=== PATIENT | male | born 1970 | race Caucasian/White ===

== ENCOUNTER 2016-11-25 00:53 | Observation (INO) | payer MEDICAID ==
[~2016-11-25] VITALS: Ht 177.8 cm; Wt 107.1 kg
[2016-11-25] MEDS ORDERED: NITROGLYCERIN SL 0.4 MG TAB SL ONE ×2 (02:25→02:43)
[2016-11-25] MEDS ORDERED: NITROGLYCERIN SL 0.4 MG TAB SL PRN (03:15)
[2016-11-25] MEDS ORDERED: NITROGLYCERIN 50 MG/250 ML IV PRN (03:15)
[2016-11-25] MEDS ORDERED: LORAZEPAM 0.5 MG TAB PO PRN (03:15)
[2016-11-25] MEDS ORDERED: TRAMADOL 50 MG TAB PO PRN (03:15)
[2016-11-25] MEDS ORDERED: SODIUM CHLORIDE 0.9% FLUSH BAG 500 ML IV PRN (03:15)
[2016-11-25] MEDS ORDERED: SALINE FLUSH 10 ML FLUSH PRN (03:15)
[2016-11-25] MEDS ORDERED: MORPHINE 2 MG/ML SYR IV PRN (03:15)
[2016-11-25] MEDS ORDERED: ACETAMINOPHEN 325 MG TAB PO PRN (03:15)
[2016-11-25] MEDS ORDERED: ONDANSETRON 4 MG VIAL IV PRN (03:15)
[2016-11-25] MEDS ORDERED: DOCUSATE SOD 100 MG CAP PO PRN (03:15)
[2016-11-25] MEDS ORDERED: TEMAZEPAM 15 MG CAP PO PRN (03:15)
[2016-11-25 04:30] VITALS: BP_SYST 102; BP_SYST 104; RESP 16; TEMP 97.8; Ht 177.8 cm; Wt 107.1 kg
[2016-11-25] MEDS ORDERED: NITROGLYCERIN 2% OINT 1 INCH PKT TOPICAL SCH (06:00)
[2016-11-25 07:35] VITALS: BP_SYST 119; RESP 18; TEMP 97.6
[2016-11-25] MEDS ORDERED: SALINE FLUSH 10 ML FLUSH SCH (08:00)
[2016-11-25] MEDS ORDERED: ASPIRIN EC 81 MG TAB PO SCH (08:00)
[2016-11-25] MEDS ORDERED: AMITRIPTYLINE 75 MG TAB PO SCH (08:50)
[2016-11-25] MEDS ORDERED: ASPIRIN EC 325 MG TAB PO SCH (09:00)
[2016-11-25] MEDS ORDERED: METOPROLOL XL 50 MG TAB PO SCH (09:00)
[2016-11-25] MEDS ORDERED: DULoxetine 30 MG CAP PO SCH (09:00)
[2016-11-25] MEDS ORDERED: GABAPENTIN 600 MG TAB PO SCH (09:00)
[2016-11-25] MEDS ORDERED: BACLOFEN 10 MG TAB PO SCH (09:00)
[2016-11-25] MEDS ORDERED: METFORMIN 750 MG PO SCH (09:00)
[2016-11-25] MEDS ORDERED: CLOPIDOGREL 75 MG TAB PO SCH (09:00)
[2016-11-25] MEDS ORDERED: LISINOPRIL 10 MG TAB PO SCH (09:00)
[2016-11-25] MEDS ORDERED: DIGOXIN 0.125 MG TAB PO SCH (12:00)
[2016-11-25 12:04] VITALS: BP_SYST 119; RESP 18; TEMP 97.6
[2016-11-25] MEDS ORDERED: Atorvastatin 40 MG TAB PO SCH (21:00)
== END 2016-11-25 08:53 | disposition home or self-care (01) ==
LOC: ENRESERV → ENRESERVTM → ENRESERVDT → ER 00:53 → EMR 03:02 → ENPENDDIS 03:02 → PCU 04:34
PROVIDERS: ADMIT Internal Medicine Cardiovascular Disease; ATTEND Internal Medicine Cardiovascular Disease
CPT/HCPCS: 71010; 93005; 94799